=== PATIENT | female | born 1980 | race Caucasian/White ===

== ENCOUNTER 2020-06-13 12:32 | Emergency (ER) | payer MEDICAID, SELFPAY ==
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
[2020-06-13 13:00] VITALS: BP 131/50; PULSE 113; RESP 20; TEMP 36.7; O2SAT 97
--- NOTE | 2020-06-13 13:15 | ECG_ITS ---
Measurements Intervals [place] Rate: 107 P: 60 FL: 173 QRS: 61 QRSD: 77 T: 59 QT: 355 QTc: 475 Interpretive Statements SINUS TACHYCARDIA POSSIBLE LEFT ATRIAL ENLARGEMENT POSSIBLE LEFT VENTRICULAR HYPERTROPHY MINIMAL Q WAVES- ANTEROLAT/INF LEADS NONSPECIFIC ST & T-WAVE ABNORMALITY- ANTEROLAT/INF LEADS BASELINE ARTIFACT- V1 ABNORMAL ECG Electronically Signed On 06-14-2020 6:32:10 CDT by Atul Almazan D.O.
--- NOTE | 2020-06-13 13:20 | PC.NURSE ---
1320 calls and messages made to find a sitter
[2020-06-13 13:53] LABS: Basophils Absolute Auto 0.06 K/mm3 (0.00-0.10); Basophils Percent Auto 0.4 % (0.0-1.0); Eosinophils Absolute Auto 0.16 K/mm3 (0.02-0.50); Eosinophils Percent Auto 1.2 % (1.0-6.0); Hematocrit 38.6 % (35.0-49.0); Hemoglobin 12.9 g/dL (12.0-15.0); Immature Granulocyte Absolute 0.12 K/mm3 (0.00-0.00); Immature Granulocyte Percent A 0.9 % (0.0-0.0); Lymphocytes Absolute Auto 3.04 K/mm3 (1.10-4.50); Lymphocytes Percent Auto 22.1 % (18.0-42.0); Mean Corpuscular HGB Conc 33.4 g/dL (32.0-36.0); Mean Corpuscular Hemoglobin 29.9 pg (27.0-31.0); Mean Corpuscular Volume 89.4 fL (78.0-102.0); Mean Platelet Volume 8.8 fl (9.2-11.8); Monocytes Percent Auto 10.2 % (2.0-11.0); Neutrophils Percent Auto 65.2 % (50.0-70.0); Platelet Count Result 414 K/mm3 (150-420); Red Blood Count 4.32 M/mm3 (4.20-5.40); Red Cell Distribution Width 11.7 % (11.6-14.4); White Blood Count 13.7 K/mm3 (4.8-10.8)
[2020-06-13] MEDS: levETIRAcetam Tablet 250 MG, levETIRAcetam Tablet 500 MG 750 MG PO (13:55)
[2020-06-13] MEDS: ONDANSETRON HCL ODT 4 MG TABLET PO (14:00)
[2020-06-13] MEDS: DULoxetine HCL 30 MG CAPSULE.DR 60 MG PO (14:00)
[2020-06-13] MEDS: hydrOXYzine HCL 25 MG TABLET (14:00)
[2020-06-13 14:03] LABS: Add Urine Microscopic? YES; Appearance Urine Cloudy (Clear); Bilirubin Urine 2+ (Negative); Blood Urine 2+ (Negative); Color Urine Amber (Yellow); Glucose Urine UA Negative (Negative); Ketones Urine 3+ (Negative); Leukocyte Esterase Ur Trace LEU/UL (Negative); Nitrate Urine Positive (Negative); Protein Urine 3+ (Negative); Specific Grav Ur >= 1.030 (1.010-1.020); pH Urine 6.5 (5.0-8.0)
[2020-06-13 14:09] LABS: Amphetamine Screen Urine Positive (Negative); Barbiturate Screen Urine Negative (Negative); Benzodiazepines Screen Urine Negative (Negative); Cannabinoid Screen Urine Positive (Negative); Cocaine Screen Urine Negative (Negative); Methadone Screen Urine Negative (Negative); Opiate Screen Urine Negative (Negative); Phencyclidine Screen Urine Negative (Negative)
[2020-06-13 14:13] LABS: Acetaminophen < 2 ug/mL (10-30); Alanine Aminotransferase 33 U/L (14-59); Albumin Level 4.5 g/dL (3.4-5.0); Alkaline Phosphatase 80 U/L (46-116); Anion Gap 11 mmol/L (8-16); Aspartate Amino Transferase 21 U/L (15-37); Bilirubin,Total 1.1 mg/dL (0.00-1.00); Blood Urea Nitrogen 19 mg/dL (7-18); Calcium 8.9 mg/dL (8.5-10.1); Carbon Dioxide 26 mmol/L (21-32); Chloride 99 mmol/L (98-108); Estimated CRCL calculation 73 ml/min; Estimated Glomerular Filt Rate > 60; Ethanol < 3 mg/dL (0-6); Glucose 111 mg/dL (70-99); Osmolality Calculated 285 mOsm/kg (285-295); Potassium 2.9 mmol/L (3.5-5.1); Sodium 136 mmol/L (136-145); Thyroid Stimulating Hormone 0.61 uIU/mL (0.36-3.74); Total Protein 8.8 g/dL (6.4-8.2)
[2020-06-13 14:14] LABS: Bacteria Urine 4+ /hpf; Squamous Epithelial Cell Urine Few /hpf (Few)
[2020-06-13 14:15] LABS: Mucus Urine Few /lpf
[2020-06-13] MEDS: HALOPERIDOL LACTATE 5 MG/ML VIAL IM (14:27)
--- NOTE | 2020-06-13 14:28 | PC.NURSE ---
1405 pt became very angry demanding to talk on the phone to a friend pt informed that no phones are allowed for now and shorter pants given because she is hot pt became very upset and started throwing everything in her room pt ran out of room throwing the mop i just used to mop up the juice she threw pt verbally aggressive and threatened staff yelling and screaming and running naked at staff 1415 [place] [employer] called 1420 Police here talking with pt
[2020-06-13] MEDS: ACETAMINOPHEN 500 MG TABLET 1000 MG PO (14:38)
[2020-06-13] MEDS: POTASSIUM CHLORIDE 20 MEQ TABLET 40 MEQ PO ×2 (14:38→21:12)
--- NOTE | 2020-06-13 14:48 | PC.NURSE ---
1445 pt incontinent of stool and bed change and clean scrub pants given officer still on scene
--- NOTE | 2020-06-13 15:34 | PC.NURSE ---
1515 pt resting with eyes closed officer left will return if needed
--- NOTE | 2020-06-13 15:52 | PC.NURSE ---
1510 [facility] called for evaluation 1550 [facility] returned call and will arrive in 45 mins or so
--- NOTE | 2020-06-13 16:42 | PC.NURSE ---
1640 pt awake complaining of right calf cramp. dr present pt trying to stretch out muscle pt given a snack
--- NOTE | 2020-06-13 19:28 | PC.NURSE ---
1927 [facility] stated there are no beds tonight pt going to room 206 for the wait for a bed placement
[2020-06-13 19:55] VITALS: BP 134/93; PULSE 120; RESP 20; O2SAT 96
--- NOTE | 2020-06-13 20:05 | PC.NURSE ---
1957 pt taken upstairs in w/c to room 206 nurse to nurse report given to nitin cartwright
--- NOTE | 2020-06-13 20:11 | PC.NURSE ---
Patient up to room 206 from ER at approximately 2000. Vital signs were taken by ER nurse just before transfer to the floor. Patient is tearful and stating that she dose not want to live anymore. Patient stating that she is hungry and she was provided with a sandwich and a fruit cup.
[2020-06-13] MEDS: traZODone HCL 50 MG TABLET 200 MG PO (20:16)
[2020-06-13] MEDS: POTASSIUM CHLORIDE 20 MEQ PACKET (FOR LIQUID) 40 MEQ PO (20:17)
[2020-06-13] MEDS: hydrOXYzine pamoate 25 MG CAPSULE PO (20:17)
--- NOTE | 2020-06-13 20:20 | PC.NURSE ---
attempted to call in sitter/off duty rn's, no one available
--- NOTE | 2020-06-13 20:23 | PC.NURSE ---
Patient refuses to take scheduled prazosin. Patient took one drink of potassium liquid and refused to drink any more and requested pills instead. Charge nurse notified.
--- NOTE | 2020-06-13 21:16 | PC.NURSE ---
Patient resting in bed. She was able to take potassium pills with water.
--- NOTE | 2020-06-13 22:30 | PC.NURSE ---
Patient resting in bed. No signs of distress are observed.
--- NOTE | 2020-06-13 23:56 | PC.NURSE ---
Patient resting in bed. No signs of distress are observed.
[2020-06-14 00:57] VITALS: BP 116/71; PULSE 93; RESP 16; TEMP 36.4; O2SAT 95
--- NOTE | 2020-06-14 01:00 | PC.NURSE ---
Patient resting in bed, she appears to be sleeping. No signs of distress are observed.
--- NOTE | 2020-06-14 02:00 | PC.NURSE ---
Patient appears to be sleeping, no signs of distress are observed.
--- NOTE | 2020-06-14 03:00 | PC.NURSE ---
Patient resting in bed. No signs of distress are observed.
--- NOTE | 2020-06-14 04:00 | PC.NURSE ---
Patient appears to be sleeping. No signs of distress are observed.
[2020-06-14] MEDS: POTASSIUM CHLORIDE 20 MEQ TABLET 40 MEQ PO (05:13)
[2020-06-14] MEDS: hydrOXYzine pamoate 25 MG CAPSULE PO (05:13)
--- NOTE | 2020-06-14 05:15 | PC.NURSE ---
Patient took am pills with water, lamin crackers and a fruit cup were provided per patient request.
[2020-06-14 05:44] LABS: Anion Gap 9 mmol/L (8-16); Blood Urea Nitrogen 18 mg/dL (7-18); Calcium 8.9 mg/dL (8.5-10.1); Carbon Dioxide 25 mmol/L (21-32); Chloride 102 mmol/L (98-108); Estimated CRCL calculation 89 ml/min; Estimated Glomerular Filt Rate > 60; Glucose 123 mg/dL (70-99); Osmolality Calculated 284 mOsm/kg (285-295); Potassium 4.1 mmol/L (3.5-5.1); Sodium 136 mmol/L (136-145)
--- NOTE | 2020-06-14 06:36 | PC.NURSE ---
Patient resting in bed, no signs of distress are observed.
--- NOTE | 2020-06-14 07:40 | PC.NURSE ---
Patient cooperative with care. When asked if continuing to have suicidal ideations, patient reports she is still having thoughts. Patient resting quietly in bed. Vital signs and physical assessment stable.
[2020-06-14 07:45] VITALS: BP 99/51; PULSE 83; RESP 20; TEMP 36.3; O2SAT 95
--- NOTE | 2020-06-14 08:30 | PC.NURSE ---
Patient ate 100% of breakfast sitting up at side of bed. Patient cooperative. Resting back in bed.
--- NOTE | 2020-06-14 09:45 | PC.NURSE ---
Patient ambulated to bathroom independently in room. Voided x1. Patient back to bed, resting quietly.
[2020-06-14] MEDS: levETIRAcetam 500 MG TABLET 750 MG PO (09:49)
[2020-06-14] MEDS: DULoxetine HCL 30 MG CAPSULE.DR 60 MG PO (09:49)
[2020-06-14] MEDS: MELOXICAM 7.5 MG TABLET 15 MG PO (09:49)
--- NOTE | 2020-06-14 10:26 | PC.NURSE ---
Patient resting in bed quietly on side. Denies any needs. Cooperative with care.
--- NOTE | 2020-06-14 10:51 | PC.NURSE ---
Angelita from [facility] called to say she is working on case now and Sydney COKER gave her update on her condition. Sitter still at bedside.
--- NOTE | 2020-06-14 11:40 | PC.NURSE ---
Patient resting quietly in bed. Cooperative with care. Patient has not voiced any suicidal ideations to nurse.
--- NOTE | 2020-06-14 12:25 | PC.NURSE ---
Patient ate 50% of lunch sitting at side of bed. Provided with warm bath wipes and tolietries to get cleaned up per pt. request. Patient resting back in bed. Papers faxed over from [facility] for patient to fill out for voluntary admit. Patient refusing to sign/fill out papers. Patient stating that she doesnt want to be placed anywhere, that she was just upset last night because she broke up with her boyfriend and that she wants to go home. [facility] notified of situation.
--- NOTE | 2020-06-14 13:45 | PC.NURSE ---
[place] worker Yenny call for update on patient, states she will be in soon to do reassessment on patient due to patient being coherant and alert today and patients wishes to go home.
--- NOTE | 2020-06-14 14:25 | PC.NURSE ---
Yenny from [facility] here to reassess patient.
--- NOTE | 2020-06-14 15:00 | PC.NURSE ---
[employer] worker Yenny done assessing patient. Safety contract signed with [employer]. Patient stated understanding. All belongings returned to patient. Patient in room getting dressed independently.
--- NOTE | 2020-06-14 15:15 | PC.NURSE ---
Patient discharged home, all belongings sent home with patient. All discharge instructions and education reviewed with patient. Patient states understanding. Accompanied to front door by this nurse, pt. ambulatory. Patient left ambulatory. Denies any questions at discharge.
[2020-06-14 15:18] VITALS: BP 99/51; PULSE 83; RESP 20; TEMP 36.3; O2SAT 95
== END 2020-06-14 15:15 | disposition home or self-care (01) ==
LOC: CHSED 15:20 → CHS2ND 19:29
PROVIDERS: Emergency Provider Emergency Medicine
DX: R45.851 Suicidal ideations (principal); F41.9 Anxiety disorder, unspecified; R45.1 Restlessness and agitation; E87.6 Hypokalemia; N30.00 Acute cystitis without hematuria
CPT/HCPCS: 36415; 80048; 80053; 80307; 81001; 84443; 85025; 87077; 87086; 87088; 87186; 93005; 96372; 99284; A9270; J1630